=== PATIENT | male | born 1970 | race Caucasian/White ===

== ENCOUNTER 2017-12-09 12:17 | Emergency (ER) | payer OTHER ==
[~2017-12-09] VITALS: Ht 177.8 cm; Wt 86.2 kg
[2017-12-09 12:22] VITALS: BP 134/81
[2017-12-09] MEDS ORDERED: IBUPROFEN 800800 M1 PO (12:35)
[2017-12-09] MEDS ORDERED: FLEXERIL PO (12:35)
[2017-12-09] MEDS ORDERED: NORCO 5-325 TA1 EACH PO (12:35)
== END 2017-12-09 12:44 | disposition home or self-care (01) ==
LOC: M.ERS 12:17
DX: M54.5 Low back pain (principal); F17.200 Nicotine dependence, unspecified, uncomplicated

== ENCOUNTER 2021-02-27 11:36 | Emergency (ER) | payer OTHER ==
[~2021-02-27] VITALS: Ht 175.3 cm; Wt 90.7 kg
[~2021-02-27 11:36] MED LIST: FLEXERIL PO; IBUPROFEN 800800 M1 PO; NORCO 5-325 TA1 EACH PO
[2021-02-27] MEDS ORDERED: PREDNISONE50 MG PO (12:42)
[2021-02-27] MEDS ORDERED: IBUPROFEN 800800 M1 PO (12:42)
[2021-02-27] MEDS ORDERED: FLEXERIL PO (12:42)
[2021-02-27 12:59] VITALS: BP 153/82
== END 2021-02-27 13:00 | disposition home or self-care (01) ==
LOC: M.ERS 11:36
DX: M54.41 Lumbago with sciatica, right side (principal); Z79.899 Other long term (current) drug therapy

== ENCOUNTER 2021-07-03 07:32 | Emergency (ER) | payer OTHER ==
[~2021-07-03] VITALS: Ht 177.8 cm; Wt 90.7 kg
[~2021-07-03 07:32] MED LIST changes: +PREDNISONE50 MG PO
[2021-07-03] MEDS ORDERED: AMOXICILLIN 50500 MG PO (08:47)
[2021-07-03] MEDS ORDERED: HYDROCODON-ACE1 EAC7 PO (08:47)
[2021-07-03 08:51] VITALS: BP 152/98
== END 2021-07-03 08:51 | disposition home or self-care (01) ==
LOC: M.ERS 07:32
DX: R59.1 Generalized enlarged lymph nodes (principal)